=== PATIENT | female | born 1955 | race Caucasian/White ===

== ENCOUNTER 2018-01-16 18:36 | Inpatient (IN) | payer BC ==
[~2018-01-16] VITALS: Ht 165.1 cm; Wt 121.3 kg
[2018-01-16] MEDS ORDERED: ONDANSETRON INJ 2 MG/ML 2 ML VIAL IV STA (18:53)
[2018-01-16] MEDS ORDERED: SODIUM CHLORIDE 0.9% 1000ML 1,000 ML IV STA (18:53)
[2018-01-16] MEDS ORDERED: MoRPHine SULFATE 4 MG/ML 1 ML CARP\\VIAL IV PRN (19:00)
--- NOTE | 2018-01-16 19:00 | EMERGENCY ROOM VISIT NOTE ---
History Report prepared by [place]: Marcy Adams Under the Supervision of: Pat SaundersO. First contact with patient: 18:45 Chief Complaint: ABDOMINAL PAIN Stated Complaint: STOMACH PAIN AND STOMACH HARD History of Present Illness The patient is a 62 year old female who presents to the Emergency Room with complaints of persistent supraumbilical pain consistent with a previously identified hernia that worsened about an hour prior to arrival. She reports that she had been having some abdominal discomfort for several weeks, which was recently identified as a hernia. The patient states that today, she began experiencing severe pain that worsens when she stands up. She denies any vomiting, diarrhea, fevers, or chills. Source of History: patient Onset: about an hour prior to arrival Position: abdomen Quality: other (pain) Timing: other (persistent) Modifying Factors (Worsening): other (standing up) Associated Symptoms: No fevers, No chills, No vomiting, No diarrhea Review of Systems See HPI for pertinent positives & negatives. A total of 10 systems reviewed and were otherwise negative. Past Medical & Surgical Medical Problems: (1) Diverticulitis (2) Hernia Family History Patient reports no known family medical history. Social History Smoking Status: Never Smoker Smokeless Tobacco Use: No Alcohol Use: none Drug Use: none Occupation Status: employed Current/Historical Medications Scheduled Amlodipine (Norvasc), 5 MG PO DAILY Fluticasone Prop/Salmeterol (Advair Diskus 500/50 60 Dose), 1 PUFF INH BID Montelukast Sodium (Singulair), 10 MG PO QPM Omeprazole (Prilosec), 20 MG PO DAILY Scheduled PRN Albuterol Hfa (Ventolin Hfa), 2 PUFF INH Q4 PRN for SOB/Wheezing Allergies Coded Allergies: Amoxicillin (Verified Allergy, Severe, HIVES, 01/16/18) Doxycycline (Verified Allergy, Severe, hives, 01/16/18) Uncoded Allergies: UNKNOWN ANTIBIOTIC (Allergy, Severe, HIVES, 01/16/18) PT STATES IT IS EITHER BACTRIM OR AUGMENTUM. Physical Exam Vital Signs Date Time Temp Pulse Resp B/P (MAP) Pulse Ox O2 Delivery O2 Flow Rate FiO2 01/16/18 21:50 93 18 132/88 98 Room Air 01/16/18 20:08 84 18 132/90 99 Room Air 01/16/18 19:10 83 01/16/18 18:42 37.1 86 20 165/94 97 Room Air Physical Exam GENERAL: Patient is awake, alert, and in no acute distress. Patient is somewhat anxious and uncomfortable appearing EYES: The conjunctivae are clear. The pupils are round and reactive. EARS, NOSE, MOUTH AND THROAT: The nose is without any evidence of any deformity. Mucous membranes are moist tongue is midline NECK: The neck is nontender and supple. RESPIRATORY: Normal respiratory effort is noted there is no evidence of wheezing rhonchi or rales CARDIOVASCULAR: Regular rate and rhythm noted there no murmurs rubs or gallops normal S1 normal S2 GASTROINTESTINAL: Abdomen was mildly distended and soft. Supraumbilical incisional hernia noted in supraumbilical region with reproducible tenderness. Bowel sounds are present in all quadrants. Abdomen is nontender MUSCULOSKELETAL/EXTREMITIES: There is no evidence of gross deformity full range of motion is noted in the hips and shoulders SKIN: There is no obvious evidence of any rash. There are no petechiae, pallor or cyanosis noted. NEUROLOGIC: Patient is awake alert and oriented x3 Medical Decision & Procedures ER Provider Diagnostic Interpretation: Radiology results as stated below per my review and radiologist interpretation: CHEST ONE VIEW PORTABLE HISTORY: Generalized abdominal pain. COMPARISON: None. FINDINGS: The lungs are clear. The cardiac silhouette is mildly enlarged. No pleural effusions. No pneumothorax. IMPRESSION: Mild cardiomegaly. Otherwise, no acute process within the chest. Electronically signed by: Davy Narayanan M.D. 01/16/2018 7:38 PM Dictated Date/Time: 01/16/2018 7:37 PM ABDOMEN AND PELVIS CT WITHOUT CONTRAST CT DOSE: 973.81 mGycm HISTORY: Midabdominal pain. hernia TECHNIQUE: Multiaxial CT images of the abdomen and pelvis were performed without contrast. A dose lowering technique was utilized adhering to the principles of ALARA. COMPARISON STUDY: None. FINDINGS: Bibasilar linear densities likely represent subsegmental atelectasis. No pneumoperitoneum. No pneumatosis. Sclerosis of the sacroiliac joint suggestive of degenerative change. Moderate to large hiatus hernia. The unenhanced liver, spleen, adrenal glands are unremarkable. A 14 mm fat-containing lesion within the pancreatic head. This is consistent with a lipoma. The right kidney is unremarkable. Left extrarenal pelvis. No hydronephrosis. The bladder, uterus, and ovaries are unremarkable. No pelvic free fluid. Rectosigmoid anastomosis. Suboptimal evaluation for bowel pathology due to the lack of intravenous and oral contrast. However, there is no definite bowel wall thickening identified. The visualized appendix appears unremarkable. Small umbilical/ventral hernia containing a a few short segments of small bowel. The small bowel loops proximal to the hernia site are mildly distended and fluid-filled measuring up to 3.5 cm. The distal small bowel loops are decompressed. Therefore, this is consistent with a small bowel obstruction. Minimal fat stranding adjacent to the use of bowel entering the hernia site. There is a small gallstone. No gallbladder wall thickening. IMPRESSION: 1. Above findings consistent with a developing small bowel obstruction secondary to the ventral/umbilical hernia. Minimal fat stranding adjacent to the loops of bowel entering the hernia site which may represent incarceration. 2. Moderate to large hiatus hernia. 3. Cholelithiasis. Electronically signed by: Davy Narayanan M.D. 01/16/2018 8:06 PM Dictated Date/Time: 01/16/2018 7:55 PM Laboratory Results 01/16/18 19:10 Red Blood Count 4.45, Mean Corpuscular Volume 76.6, Mean Corpuscular Hemoglobin 24.0, Mean Corpuscular Hemoglobin Concent 31.4, Mean Platelet Volume 9.0, Neutrophils (%) (Auto) 70.1, Lymphocytes (%) (Auto) 17.6, Monocytes (%) (Auto) 10.6, Eosinophils (%) (Auto) 1.3, Basophils (%) (Auto) 0.2, Neutrophils # (Auto ) 6.63, Lymphocytes # (Auto) 1.66, Monocytes # (Auto) 1.00, Eosinophils # (Auto ) 0.12, Basophils # (Auto) 0.02 01/16/18 19:10 Test 01/16/18 19:10 01/16/18 19:17 01/16/18 19:24 01/16/18 19:25 White Blood Count 9.45 K/uL (4.8-10.8) Red Blood Count 4.45 M/uL (4.2-5.4) Hemoglobin 10.7 g/dL (12.0-16.0) Hematocrit 34.1 % (37-47) Mean Corpuscular Volume 76.6 fL (80-100) Mean Corpuscular Hemoglobin 24.0 pg (25-34) Mean Corpuscular Hemoglobin Concent 31.4 g/dl (32-36) Platelet Count 355 K/uL (130-400) Mean Platelet Volume 9.0 fL (7.4-10.4) Neutrophils (%) (Auto) 70.1 % Lymphocytes (%) (Auto) 17.6 % Monocytes (%) (Auto) 10.6 % Eosinophils (%) (Auto) 1.3 % Basophils (%) (Auto) 0.2 % Neutrophils # (Auto) 6.63 K/uL (1.4-6.5) Lymphocytes # (Auto) 1.66 K/uL (1.2-3.4) Monocytes # (Auto) 1.00 K/uL (0.11-0.59) Eosinophils # (Auto) 0.12 K/uL (0-0.5) Basophils # (Auto) 0.02 K/uL (0-0.2) RDW Standard Deviation 44.5 fL (36.4-46.3) RDW Coefficient of Variation 15.9 % (11.5-14.5) Immature Granulocyte % (Auto) 0.2 % Immature Granulocyte # (Auto) 0.02 K/uL (0.00-0.02) Est Creatinine Clear Calc Drug Dose 50.0 ml/min Estimated GFR () 41.1 Estimated GFR (Non- 35.5 BUN/Creatinine Ratio 13.1 (10-20) Calcium Level 8.6 mg/dl (8.5-10.1) Total Bilirubin 0.2 mg/dl (0.2-1) Direct Bilirubin < 0.1 mg/dl (0-0.2) Aspartate Amino Transf (AST/SGOT) 13 U/L (15-37) Alanine Aminotransferase (ALT/SGPT) 15 U/L (12-78) Alkaline Phosphatase 149 U/L (45-117) Troponin I < 0.015 ng/ml (0-0.045) Total Protein 8.0 gm/dl (6.4-8.2) Albumin 3.6 gm/dl (3.4-5.0) Lipase 290 U/L (73-393) Bedside Lactic Acid Venous 0.84 mmol/L (0.90-1.70) Bedside Hemoglobin 11.2 g/dl (12.0-16.0) Bedside Hematocrit 33 % (37-47) Bedside Sodium 142 mEq/L (135-144) Bedside Potassium 3.8 mEq/L (3.3-5.0) Bedside Chloride 103 mEq/L (101-112) Bedside Total CO2 25 mEq/l (24-31) Anion Gap 18.0 mmol/L (16-25) Bedside Blood Urea Nitrogen 21 mg/dl (7-18) Bedside Creatinine 1.5 mg/dl (0.6-1.3) Bedside Glucose (other) 112 mg/dl (70-99) Bedside Ionized Calcium (Macey) 1.11 mmol/l (1.12-1.32) Urine Color YELLOW Urine Appearance CLEAR (CLEAR) Urine pH 7.0 (4.5-7.5) Urine Specific [place] 1.013 (1.000-1.030) Urine Protein NEG (NEG) Urine Glucose (UA) NEG (NEG) Urine Ketones NEG (NEG) Urine Occult Blood NEG (NEG) Urine Nitrite NEG (NEG) Urine Bilirubin NEG (NEG) Urine Urobilinogen NEG (NEG) Urine Leukocyte Esterase TRACE (NEG) Urine WBC (Auto) 1-5 /hpf (0-5) Urine RBC (Auto) 0-4 /hpf (0-4) Urine Hyaline Casts (Auto) 0 /lpf (0-5) Urine Epithelial Cells (Auto) 10-20 /lpf (0-5) Urine Bacteria (Auto) NEG (NEG) Laboratory results per my review. Medications Administered Medications (Trade) Dose Ordered Sig/Mikey Route Start Time Stop Time Status Last Admin Dose Admin Sodium Chloride 1,000 ml @ 999 mls/hr Q1H1M STAT IV 01/16/18 18:53 01/16/18 19:53 DC 01/16/18 19:22 999 MLS/HR Sodium Chloride 1,000 ml @ 100 mls/hr Q10H IV 01/16/18 22:21 02/15/18 22:20 01/16/18 23:15 100 MLS/HR ECG Per My Interpretation Indication: abdominal pain Rate (beats per minute): 84 Rhythm: normal sinus Findings: no ectopy, other (No acute ST changes) Comparison ECG Date: no prior available ED Course 184: The patient was evaluated in room B11. A complete history and physical examination were performed. 185: Ordered Zofran Inj 4mg IV and Sodium Chloride 1000 ml @ 999 mls/hr IV. 1899: Ordered Morphine Sulfate 4mg IV. 2037: I discussed the patient's case with Dr. Byrd- general surgery. The patient will be evaluated for further management. Medical Decision Prior records/ancillary studies reviewed. Triage Nursing notes reviewed. The patient's history was concerning for abdominal pain. Differential diagnosis: Etiologies such as appendicitis, diverticulitis, PUD, biliary pathology, UTI, pancreatitis, obstruction, mesenteric ischemia, aortic pathology, infections, inflammatory bowel disease, renal colic, as well as others were entertained. The patient is a 62-year-old female who presented to the emergency department for an evaluation of abdominal discomfort. The patient has a history of a ventral hernia. She states that this area became very indurated and tender to palpation earlier today. The patient's physical exam did not reveal definite incarcerated hernia but there was a small sliding area in the supra umbilical region. I discussed patient's laboratory and radiographic studies with her. She was found to have signs of an incarcerated hernia on CAT scan. I discussed this case with the on-call general surgeon. The patient was evaluated by the general surgeon in the emergency department it was felt to be a candidate for operative management of this hernia. The patient was agreeable this plan. Medication Reconcilliation Current Medication List: was personally reviewed by me Blood Pressure Screening Patient's blood pressure: Normal blood pressure Blood pressure disposition: Did not require urgent referral Consults Time Called: 2037 Consulting Physician: Dr. Byrd, general surgery Returned Call: 2037 I discussed the patient's case with Dr. Byrd- general surgery. The patient will be evaluated for further management. Impression Primary Impression: Incarcerated ventral hernia Additional Impression: Bowel obstruction Scribe Attestation The scribe's documentation has been prepared under my direction and personally reviewed by me in its entirety. I confirm that the note above accurately reflects all work, treatment, procedures, and medical decision making performed by me. Departure Information Dispostion Being Evaluated By Surgeon Referrals No Doctor, Assigned (PCP) Forms Call Back Authorization, HOME CARE DOCUMENTATION FORM, IMPORTANT VISIT INFORMATION Patient Instructions My [facility] Problem Qualifiers Additional Impression: Bowel obstruction Intestinal obstruction type: unspecified Intestinal obstruction extent: unspecified extent Qualified Codes: K56.609 - Unspecified intestinal obstruction, unspecified as to partial versus complete obstruction
[2018-01-16 19:29] LABS: BASO % 0.2 %; BASO ABS # 0.02 K/uL (0-0.2); EOS % 1.3 %; EOS ABS # 0.12 K/uL (0-0.5); HEMATOCRIT 34.1 % (37-47); HEMOGLOBIN 10.7 g/dL (12.0-16.0); IG# 0.02 K/uL (0.00-0.02); LYMPH % 17.6 %; LYMPH ABS # 1.66 K/uL (1.2-3.4); MEAN CELL VOLUME 76.6 fL (80-100); MEAN CORPUSCULAR HGB CONC 31.4 g/dl (32-36); MONO % 10.6 %; NEUT % 70.1 %; NEUT ABS # 6.63 K/uL (1.4-6.5); PLATELET COUNT 355 K/uL (130-400); RED CELL DISTRIBUTION WIDTH CV 15.9 % (11.5-14.5); RED CELL DISTRIBUTION WIDTH SD 44.5 fL (36.4-46.3); WHITE BLOOD COUNT 9.45 K/uL (4.8-10.8)
[2018-01-16 19:37] LABS: ISTAT CREATININE 1.5 mg/dl (0.6-1.3); ISTAT IONIZED CALCIUM 1.11 mmol/l (1.12-1.32); ISTAT POTASSIUM 3.8 mEq/L (3.3-5.0)
--- NOTE | 2018-01-16 19:40 | DIAGNOSTIC IMAGING REPORT ---
CHEST ONE VIEW PORTABLE HISTORY: Generalized abdominal pain. COMPARISON: None. FINDINGS: The lungs are clear. The cardiac silhouette is mildly enlarged. No pleural effusions. No pneumothorax. IMPRESSION: Mild cardiomegaly. Otherwise, no acute process within the chest. Electronically signed by: Davy Narayanan M.D. 01/16/2018 7:38 PM Dictated Date/Time: 01/16/2018 7:37 PM
[2018-01-16 19:46] LABS: ALBUMIN 3.6 gm/dl (3.4-5.0); ALT/SGPT 15 U/L (12-78); AST/SGOT 13 U/L (15-37); BLOOD UREA NITROGEN 21 mg/dl (7-18); CALCIUM 8.6 mg/dl (8.5-10.1); CARBON DIOXIDE 28 mmol/L (21-32); CREATININE 1.57 mg/dl (0.60-1.20); GLUCOSE 106 mg/dl (70-99); LIPASE 290 U/L (73-393); POTASSIUM 3.7 mmol/L (3.5-5.1); SODIUM 139 mmol/L (136-145)
[2018-01-16 19:51] LABS: ALKALINE PHOSPHATASE 149 U/L (45-117)
--- NOTE | 2018-01-16 20:07 | DIAGNOSTIC IMAGING REPORT ---
ABDOMEN AND PELVIS CT WITHOUT CONTRAST CT DOSE: 973.81 mGycm HISTORY: Midabdominal pain. hernia TECHNIQUE: Multiaxial CT images of the abdomen and pelvis were performed without contrast. A dose lowering technique was utilized adhering to the principles of ALARA. COMPARISON STUDY: None. FINDINGS: Bibasilar linear densities likely represent subsegmental atelectasis. No pneumoperitoneum. No pneumatosis. Sclerosis of the sacroiliac joint suggestive of degenerative change. Moderate to large hiatus hernia. The unenhanced liver, spleen, adrenal glands are unremarkable. A 14 mm fat-containing lesion within the pancreatic head. This is consistent with a lipoma. The right kidney is unremarkable. Left extrarenal pelvis. No hydronephrosis. The bladder, uterus, and ovaries are unremarkable. No pelvic free fluid. Rectosigmoid anastomosis. Suboptimal evaluation for bowel pathology due to the lack of intravenous and oral contrast. However, there is no definite bowel wall thickening identified. The visualized appendix appears unremarkable. Small umbilical/ventral hernia containing a a few short segments of small bowel. The small bowel loops proximal to the hernia site are mildly distended and fluid-filled measuring up to 3.5 cm. The distal small bowel loops are decompressed. Therefore, this is consistent with a small bowel obstruction. Minimal fat stranding adjacent to the use of bowel entering the hernia site. There is a small gallstone. No gallbladder wall thickening. IMPRESSION: 1. Above findings consistent with a developing small bowel obstruction secondary to the ventral/umbilical hernia. Minimal fat stranding adjacent to the loops of bowel entering the hernia site which may represent incarceration. 2. Moderate to large hiatus hernia. 3. Cholelithiasis. Electronically signed by: Davy Narayanan M.D. 01/16/2018 8:06 PM Dictated Date/Time: 01/16/2018 7:55 PM
[2018-01-16] MEDS ORDERED: ADVIN50/60 INH (20:19)
[2018-01-16] MEDS ORDERED: AMLO-110 PO (20:19)
[2018-01-16] MEDS ORDERED: PRLSR20 PO (20:19)
[2018-01-16] MEDS ORDERED: MONT1TAB3 PO (20:19)
[2018-01-16] MEDS ORDERED: VNTHFA/IN INH (20:19)
--- NOTE | 2018-01-16 22:41 | History and Physical ---
History & Physical Date & Time of Service: Jan 16, 2018 at 22:28 Chief Complaint: Stomach Pain And Stomach Hard Primary Care Physician: No Doctor, Assigned History of Present Illness Source: patient, family This is a 62-year-old female who presented to the emergency room with increased abdominal pain in the periumbilical region. She underwent a sigmoid colon resection with formation of colostomy in January 2017 and then underwent colostomy reversal in April 2017. She had an episode of C. difficile colitis after that but has recovered completely. A few months after the colostomy reversal she noticed a bulge in the umbilical region. She also noticed that it was uncomfortable in that area. It was a dull ache. There is no sharp pain until a few days ago when she the area seemed to be harder and there was more pain. This eventually resolved back to just about baseline but she was having additional discomfort again earlier tonight. She had mild nausea that she attributed to being nervous. She has not had any vomiting. Her bowels have been moving with formed stool. She has no melena or hematochezia. She denies dysuria and hematuria. She has not had any fever. Past Medical/Surgical History Medical Problems: (1) Diverticulitis (2) Hernia (3) Hypertension (4) Asthma (5) Hiatal hernia (6) GERD PSH: (1) Tubal ligation (2) Lau procedure (3) Reversal of colostomy Family History Patient reports no known family medical history. Social History Smoking Status: Never Smoker Smokeless Tobacco Use: No Alcohol Use: None for the last 1 1/2 years Drug Use: none Occupational Status: employed Allergies Coded Allergies: Amoxicillin (Verified Allergy, Severe, HIVES, 01/16/18) Doxycycline (Verified Allergy, Severe, hives, 01/16/18) Uncoded Allergies: UNKNOWN ANTIBIOTIC (Allergy, Severe, HIVES, 01/16/18) PT STATES IT IS EITHER BACTRIM OR AUGMENTUM. Home Medications Scheduled Amlodipine (Norvasc), 5 MG PO DAILY Fluticasone Prop/Salmeterol (Advair Diskus 500/50 60 Dose), 1 PUFF INH BID Montelukast Sodium (Singulair), 10 MG PO QPM Omeprazole (Prilosec), 20 MG PO DAILY Scheduled PRN Albuterol Hfa (Ventolin Hfa), 2 PUFF INH Q4 PRN for SOB/Wheezing Review of Systems Constitutional: No fever, No chills Respiratory: No cough, No sputum Cardiovascular: No chest pain, No orthopnea Abdomen: + problem reported (as per HPI) Genitourinary - Female: No dysuria, No urinary frequency Endocrine: No fatigue Integumentary: No rash Physical Exam Vital Signs Date Time Temp Pulse Resp B/P (MAP) Pulse Ox O2 Delivery O2 Flow Rate FiO2 01/16/18 21:50 93 18 132/88 98 Room Air 01/16/18 20:08 84 18 132/90 99 Room Air 01/16/18 19:10 83 01/16/18 18:42 37.1 86 20 165/94 97 Room Air General Appearance: + obese Head: normocephalic Neck: supple, no adenopathy Respiratory/Chest: chest non-tender, lungs clear Cardiovascular: regular rate, rhythm Abdomen/GI: normal bowel sounds, soft, + pertinent finding (ventral hernia near umbilicus that was easily completely reduced , ) Back: normal inspection Skin: normal color Diagnostics Laboratory Results Results Past 24 Hours Test 01/16/18 19:10 01/16/18 19:17 01/16/18 19:24 01/16/18 19:25 Range/Units White Blood Count 9.45 4.8-10.8 K/uL Red Blood Count 4.45 4.2-5.4 M/uL Hemoglobin 10.7 12.0-16.0 g/dL Hematocrit 34.1 37-47 % Mean Corpuscular Volume 76.6 80-100 fL Mean Corpuscular Hemoglobin 24.0 25-34 pg Mean Corpuscular Hemoglobin Concent 31.4 32-36 g/dl Platelet Count 355 130-400 K/uL Mean Platelet Volume 9.0 7.4-10.4 fL Neutrophils (%) (Auto) 70.1 % Lymphocytes (%) (Auto) 17.6 % Monocytes (%) (Auto) 10.6 % Eosinophils (%) (Auto) 1.3 % Basophils (%) (Auto) 0.2 % Neutrophils # (Auto) 6.63 1.4-6.5 K/uL Lymphocytes # (Auto) 1.66 1.2-3.4 K/uL Monocytes # (Auto) 1.00 0.11-0.59 K/uL Eosinophils # (Auto) 0.12 0-0.5 K/uL Basophils # (Auto) 0.02 0-0.2 K/uL RDW Standard Deviation 44.5 36.4-46.3 fL RDW Coefficient of Variation 15.9 11.5-14.5 % Immature Granulocyte % (Auto) 0.2 % Immature Granulocyte # (Auto) 0.02 0.00-0.02 K/uL Sodium Level 139 136-145 mmol/L Potassium Level 3.7 3.5-5.1 mmol/L Chloride Level 106 98-107 mmol/L Carbon Dioxide Level 28 21-32 mmol/L Anion Gap 5.0 18.0 16-25 mmol/L Blood Urea Nitrogen 21 7-18 mg/dl Creatinine 1.57 0.60-1.20 mg/dl Est Creatinine Clear Calc Drug Dose 50.0 ml/min Estimated GFR () 41.1 Estimated GFR (Non- 35.5 BUN/Creatinine Ratio 13.1 10-20 Random Glucose 106 70-99 mg/dl Calcium Level 8.6 8.5-10.1 mg/dl Total Bilirubin 0.2 0.2-1 mg/dl Direct Bilirubin < 0.1 0-0.2 mg/dl Aspartate Amino Transf (AST/SGOT) 13 15-37 U/L Alanine Aminotransferase (ALT/SGPT) 15 12-78 U/L Alkaline Phosphatase 149 45-117 U/L Troponin I < 0.015 0-0.045 ng/ml Total Protein 8.0 6.4-8.2 gm/dl Albumin 3.6 3.4-5.0 gm/dl Lipase 290 73-393 U/L Bedside Lactic Acid Venous 0.84 0.90-1.70 mmol/L Bedside Hemoglobin 11.2 12.0-16.0 g/dl Bedside Hematocrit 33 37-47 % Bedside Sodium 142 135-144 mEq/L Bedside Potassium 3.8 3.3-5.0 mEq/L Bedside Chloride 103 101-112 mEq/L Bedside Total CO2 25 24-31 mEq/l Bedside Blood Urea Nitrogen 21 7-18 mg/dl Bedside Creatinine 1.5 0.6-1.3 mg/dl Bedside Glucose (other) 112 70-99 mg/dl Bedside Ionized Calcium (Macey) 1.11 1.12-1.32 mmol/l Urine Color YELLOW Urine Appearance CLEAR CLEAR Urine pH 7.0 4.5-7.5 Urine Specific [place] 1.013 1.000-1.030 Urine Protein NEG NEG Urine Glucose (UA) NEG NEG Urine Ketones NEG NEG Urine Occult Blood NEG NEG Urine Nitrite NEG NEG Urine Bilirubin NEG NEG Urine Urobilinogen NEG NEG Urine Leukocyte Esterase TRACE NEG Urine WBC (Auto) 1-5 0-5 /hpf Urine RBC (Auto) 0-4 0-4 /hpf Urine Hyaline Casts (Auto) 0 0-5 /lpf Urine Epithelial Cells (Auto) 10-20 0-5 /lpf Urine Bacteria (Auto) NEG NEG Diagnostic Radiology ABDOMEN AND PELVIS CT WITHOUT CONTRAST CT DOSE: 973.81 mGycm HISTORY: Midabdominal pain. hernia TECHNIQUE: Multiaxial CT images of the abdomen and pelvis were performed without contrast. A dose lowering technique was utilized adhering to the principles of ALARA. COMPARISON STUDY: None. FINDINGS: Bibasilar linear densities likely represent subsegmental atelectasis. No pneumoperitoneum. No pneumatosis. Sclerosis of the sacroiliac joint suggestive of degenerative change. Moderate to large hiatus hernia. The unenhanced liver, spleen, adrenal glands are unremarkable. A 14 mm fat-containing lesion within the pancreatic head. This is consistent with a lipoma. The right kidney is unremarkable. Left extrarenal pelvis. No hydronephrosis. The bladder, uterus, and ovaries are unremarkable. No pelvic free fluid. Rectosigmoid anastomosis. Suboptimal evaluation for bowel pathology due to the lack of intravenous and oral contrast. However, there is no definite bowel wall thickening identified. The visualized appendix appears unremarkable. Small umbilical/ventral hernia containing a a few short segments of small bowel. The small bowel loops proximal to the hernia site are mildly distended and fluid-filled measuring up to 3.5 cm. The distal small bowel loops are decompressed. Therefore, this is consistent with a small bowel obstruction. Minimal fat stranding adjacent to the use of bowel entering the hernia site. There is a small gallstone. No gallbladder wall thickening. IMPRESSION: 1. Above findings consistent with a developing small bowel obstruction secondary to the ventral/umbilical hernia. Minimal fat stranding adjacent to the loops of bowel entering the hernia site which may represent incarceration. 2. Moderate to large hiatus hernia. 3. Cholelithiasis. Impression Assessment and Plan This patient may have had incarceration of her ventral hernia. I was able to reduce it completely. She will need to have this repaired. I offered to repair tomorrow versus sending her home repairing it as an outpatient. She has chosen to have it repaired tomorrow. I explained to her the procedure and the possible complications and answered her questions. She has signed a consent form. We will admit her to the [facility]. She will be kept n.p.o. with IV hydration. Resuscitation Status VTE Prophylaxis Will order VTE Prophylaxis: Yes Reason for no VTE drug order: Contraindicated
[2018-01-16 23:00] VITALS: BP 163/75; PULSE 83; TEMP 36.7; O2SAT 97; Ht 165.1 cm; Wt 121.3 kg
[2018-01-16] MEDS: SODIUM CHLORIDE 0.9% 1000ML 1,000 ML IV SCH (23:15)
[2018-01-16] MEDS: ONDANSETRON INJ 2 MG/ML 2 ML VIAL IV PRN (23:25)
[2018-01-17] VITALS (8 sets, daily range): BP systolic 121–146; BP diastolic 76–87; PULSE 61–82; TEMP 36.3–36.8; O2SAT 95–98
[2018-01-17] MEDS ORDERED: CLINDAMYCIN IV 900 MG in DEXTROSE 5% 100ML 100 ML IV ONE (06:00)
[2018-01-17 07:57] LABS: BASO % 0.3 %; BASO ABS # 0.02 K/uL (0-0.2); EOS % 1.3 %; EOS ABS # 0.08 K/uL (0-0.5); HEMOGLOBIN 9.8 g/dL (12.0-16.0); IG# 0.01 K/uL (0.00-0.02); LYMPH % 22.3 %; MEAN CELL VOLUME 76.4 fL (80-100); MEAN CORPUSCULAR HEMOGLOBIN 23.4 pg (25-34); MEAN CORPUSCULAR HGB CONC 30.6 g/dl (32-36); MONO % 10.3 %; MONO ABS # 0.65 K/uL (0.11-0.59); NEUT % 65.6 %; NEUT ABS # 4.13 K/uL (1.4-6.5); PLATELET COUNT 290 K/uL (130-400); RED CELL DISTRIBUTION WIDTH CV 16.2 % (11.5-14.5); RED CELL DISTRIBUTION WIDTH SD 44.7 fL (36.4-46.3); WHITE BLOOD COUNT 6.29 K/uL (4.8-10.8)
[2018-01-17] MEDS: SODIUM CHLORIDE 0.9% 1000ML 1,000 ML IV SCH ×2 (08:52→23:14)
[2018-01-17] MEDS ORDERED: ACETAMINOPHEN 325 MG TAB PO STA (08:59)
--- NOTE | 2018-01-17 09:52 | Surgery Progress Note ---
Surgery Progress Note Date of Service Jan 17, 2018. Subjective + feeling well, + complaints (+headache), + pain controlled, No chest pain, No SOB, No nausea, No vomiting Objective Vital Signs: Date Time Temp Pulse Resp B/P (MAP) Pulse Ox O2 Delivery O2 Flow Rate FiO2 01/17/18 08:16 36.3 66 13 129/85 (100) 97 Room Air 01/17/18 07:45 Room Air 01/16/18 23:00 36.7 83 18 163/75 97 Room Air 01/16/18 23:00 Room Air 01/16/18 22:41 87 18 143/100 98 01/16/18 21:50 93 18 132/88 98 Room Air 01/16/18 20:08 84 18 132/90 99 Room Air 01/16/18 19:10 83 01/16/18 18:42 37.1 86 20 165/94 97 Room Air General Appearance: WD/WN, no apparent distress, + obese Head: normocephalic, atraumatic Neck: trachea midline Respiratory/Chest: lungs clear, normal breath sounds, no respiratory distress, no accessory muscle use Cardiovascular: regular rate, rhythm, no murmur Abdomen: non tender, non distended, soft, no organomegaly, no pulsatile mass, + hernia (ventral hernia, reduced at this time) Laboratory Results: Results Past 24 Hours Test 01/16/18 19:10 01/16/18 19:17 01/16/18 19:24 01/16/18 19:25 Range/Units White Blood Count 9.45 4.8-10.8 K/uL Red Blood Count 4.45 4.2-5.4 M/uL Hemoglobin 10.7 12.0-16.0 g/dL Hematocrit 34.1 37-47 % Mean Corpuscular Volume 76.6 80-100 fL Mean Corpuscular Hemoglobin 24.0 25-34 pg Mean Corpuscular Hemoglobin Concent 31.4 32-36 g/dl Platelet Count 355 130-400 K/uL Mean Platelet Volume 9.0 7.4-10.4 fL Neutrophils (%) (Auto) 70.1 % Lymphocytes (%) (Auto) 17.6 % Monocytes (%) (Auto) 10.6 % Eosinophils (%) (Auto) 1.3 % Basophils (%) (Auto) 0.2 % Neutrophils # (Auto) 6.63 1.4-6.5 K/uL Lymphocytes # (Auto) 1.66 1.2-3.4 K/uL Monocytes # (Auto) 1.00 0.11-0.59 K/uL Eosinophils # (Auto) 0.12 0-0.5 K/uL Basophils # (Auto) 0.02 0-0.2 K/uL RDW Standard Deviation 44.5 36.4-46.3 fL RDW Coefficient of Variation 15.9 11.5-14.5 % Immature Granulocyte % (Auto) 0.2 % Immature Granulocyte # (Auto) 0.02 0.00-0.02 K/uL Sodium Level 139 136-145 mmol/L Potassium Level 3.7 3.5-5.1 mmol/L Chloride Level 106 98-107 mmol/L Carbon Dioxide Level 28 21-32 mmol/L Anion Gap 5.0 18.0 16-25 mmol/L Blood Urea Nitrogen 21 7-18 mg/dl Creatinine 1.57 0.60-1.20 mg/dl Est Creatinine Clear Calc Drug Dose 50.0 ml/min Estimated GFR () 41.1 Estimated GFR (Non- 35.5 BUN/Creatinine Ratio 13.1 10-20 Random Glucose 106 70-99 mg/dl Calcium Level 8.6 8.5-10.1 mg/dl Total Bilirubin 0.2 0.2-1 mg/dl Direct Bilirubin < 0.1 0-0.2 mg/dl Aspartate Amino Transf (AST/SGOT) 13 15-37 U/L Alanine Aminotransferase (ALT/SGPT) 15 12-78 U/L Alkaline Phosphatase 149 45-117 U/L Troponin I < 0.015 0-0.045 ng/ml Total Protein 8.0 6.4-8.2 gm/dl Albumin 3.6 3.4-5.0 gm/dl Lipase 290 73-393 U/L Bedside Lactic Acid Venous 0.84 0.90-1.70 mmol/L Bedside Hemoglobin 11.2 12.0-16.0 g/dl Bedside Hematocrit 33 37-47 % Bedside Sodium 142 135-144 mEq/L Bedside Potassium 3.8 3.3-5.0 mEq/L Bedside Chloride 103 101-112 mEq/L Bedside Total CO2 25 24-31 mEq/l Bedside Blood Urea Nitrogen 21 7-18 mg/dl Bedside Creatinine 1.5 0.6-1.3 mg/dl Bedside Glucose (other) 112 70-99 mg/dl Bedside Ionized Calcium ([place]) 1.11 1.12-1.32 mmol/l Urine Color YELLOW Urine Appearance CLEAR CLEAR Urine pH 7.0 4.5-7.5 Urine Specific [place] 1.013 1.000-1.030 Urine Protein NEG NEG Urine Glucose (UA) NEG NEG Urine Ketones NEG NEG Urine Occult Blood NEG NEG Urine Nitrite NEG NEG Urine Bilirubin NEG NEG Urine Urobilinogen NEG NEG Urine Leukocyte Esterase TRACE NEG Urine WBC (Auto) 1-5 0-5 /hpf Urine RBC (Auto) 0-4 0-4 /hpf Urine Hyaline Casts (Auto) 0 0-5 /lpf Urine Epithelial Cells (Auto) 10-20 0-5 /lpf Urine Bacteria (Auto) NEG NEG Test 01/17/18 07:44 Range/Units White Blood Count 6.29 4.8-10.8 K/uL Red Blood Count 4.19 4.2-5.4 M/uL Hemoglobin 9.8 12.0-16.0 g/dL Hematocrit 32.0 37-47 % Mean Corpuscular Volume 76.4 80-100 fL Mean Corpuscular Hemoglobin 23.4 25-34 pg Mean Corpuscular Hemoglobin Concent 30.6 32-36 g/dl Platelet Count 290 130-400 K/uL Mean Platelet Volume 9.0 7.4-10.4 fL Neutrophils (%) (Auto) 65.6 % Lymphocytes (%) (Auto) 22.3 % Monocytes (%) (Auto) 10.3 % Eosinophils (%) (Auto) 1.3 % Basophils (%) (Auto) 0.3 % Neutrophils # (Auto) 4.13 1.4-6.5 K/uL Lymphocytes # (Auto) 1.40 1.2-3.4 K/uL Monocytes # (Auto) 0.65 0.11-0.59 K/uL Eosinophils # (Auto) 0.08 0-0.5 K/uL Basophils # (Auto) 0.02 0-0.2 K/uL RDW Standard Deviation 44.7 36.4-46.3 fL RDW Coefficient of Variation 16.2 11.5-14.5 % Immature Granulocyte % (Auto) 0.2 % Immature Granulocyte # (Auto) 0.01 0.00-0.02 K/uL Assessment & Plan Incarcerated ventral/umbilical hernia, s/p complete reduction in the emergency room. Scheduled for hernia repair today with Dr. Byrd. Vitals stable. Afebrile. No leukocytosis. Pain resolved. Plan: PO Tylenol one time dose with small sip of water for Headache Continue IV Fluids and IV Zofran as needed OR sometime early afternoon Consent has already been obtained by Dr. Byrd
[2018-01-17] MEDS ORDERED: ONDANSETRON INJ 2 MG/ML 2 ML VIAL IV PRN ×3 (10:15→16:00)
[2018-01-17] MEDS ORDERED: HYDROmorphone INJ 1 MG/ML SYR IV PRN ×3 (10:15→16:00)
[2018-01-17] MEDS ORDERED: EpHEDrine SULFATE INJ 50 MG/ML AMP IV PRN ×3 (10:15→16:00)
[2018-01-17] MEDS ORDERED: LABETALOL HCL IV 5 MG/ML 20ML IV PRN ×2 (10:15→14:00)
[2018-01-17] MEDS ORDERED: FENTANYL CITRATE INJ 50 MCG/1 ML 2 ML VIAL IV PRN ×2 (10:15→14:00)
[2018-01-17] MEDS ORDERED: ATROPINE SULFATE 0.1 MG/ML 5ML SYR IV PRN ×3 (10:15→16:00)
[2018-01-17] MEDS ORDERED: MEPERIDINE HCL 25 MG/ML CARP IV PRN ×2 (10:15→14:00)
[2018-01-17] MEDS ORDERED: BUPIVACAINE 0.5 % 5 MG/1 ML MPF 30ML VIAL ONE (13:22)
[2018-01-17] MEDS ORDERED: FENTANYL CITRATE INJ 50 MCG/1 ML 2 ML VIAL ONE (14:46)
[2018-01-17] MEDS ORDERED: MIDAZOLAM HCL 1 MG/ML 2ML VIAL ONE (14:46)
[2018-01-17] MEDS ORDERED: PROPOFOL IV EMULSION 10 MG/ML 20 ML VIAL IV ONE (14:46)
--- NOTE | 2018-01-17 14:46 | History & Physical Bridge Note ---
H&P Re-Evaluation Bridge Note: I have examined the patient, reviewed the History & Physical and in the interval since the performance of the History & Physical I have noted the following changes of clinical significance: No changes noted
[2018-01-17] MEDS ORDERED: NEOSTIGMINE METHYLSULFATE 5 MG/5 ML SYR ONE (15:35)
[2018-01-17] MEDS ORDERED: ONDANSETRON INJ 2 MG/ML 2 ML VIAL ONE (15:35)
[2018-01-17] MEDS ORDERED: ROCURONIUM BROMIDE 10 MG/ML 5 ML VIAL IV ONE ×2 (15:35→16:46)
[2018-01-17] MEDS ORDERED: LIDOCAINE HCL 2% 2 ML VIAL (20MG/ML) ONE (15:35)
[2018-01-17] MEDS ORDERED: GLYCOPYRROLATE INJ 0.2 MG/ML VIAL ONE (15:35)
[2018-01-17] MEDS ORDERED: DEXAMETHASONE SOD INJ 4 MG/ML VIAL ONE (15:35)
[2018-01-17] MEDS ORDERED: HYDROmorphone INJ 2 MG/ML SYR/VIAL ONE (15:36)
[2018-01-17] MEDS ORDERED: SUCCINYLCHOLINE CHLORIDE 20 MG/ML 10 ML VIAL IV ONE (16:50)
--- NOTE | 2018-01-17 17:32 | [facility] Post Operative Brief Note ---
Immediate Operative Summary Operative Date Jan 17, 2018. Pre-Operative Diagnosis ventral hernia Post-Operative Diagnosis same Procedure(s) Performed Repair of ventral hernia Surgeon Dr. Valentín Byrd Small Animal Caretaker Surgeon(s) Alda Og PA-C Estimated Blood Loss 20 cc Findings Consistent with Post-Op Diagnosis Specimens None Drains None Anesthesia Type General Complication(s) none Disposition Disposition: Recovery Room / PACU
[2018-01-17] MEDS ORDERED: MoRPHine SULFATE 4 MG/ML 1 ML CARP\\VIAL IV PRN (18:00)
[2018-01-17] MEDS: FENTANYL CITRATE INJ 50 MCG/1 ML 2 ML VIAL IV PRN ×8 (18:24→19:14)
[2018-01-17] MEDS ORDERED: HYDROmorphone INJ 0.5 MG/0.5 ML SYR ONE (18:41)
[2018-01-17] MEDS ORDERED: NURSING VERBAL MED ORDER ONE ×3 (18:50→23:00)
[2018-01-17] MEDS ORDERED: PROMETHAZINE HCL INJ 6.25 MG in SODIUM CHLORIDE 0.9% 50ML 50 ML IV ONE (19:15)
--- NOTE | 2018-01-17 19:32 | Anesthesiology Progress Note ---
Anesthesia Post Op Note Date & Time Jan 17, 2018 at 19:32 Vital Signs Pain Intensity: 5 Vital Signs Past 12 Hours Date Time Temp Pulse Resp B/P (MAP) Pulse Ox O2 Delivery O2 Flow Rate FiO2 01/17/18 19:20 36.4 95 Nasal Cannula 2 01/17/18 19:17 74 14 01/17/18 19:17 80 14 96 01/17/18 19:16 137/83 01/17/18 19:12 76 14 01/17/18 19:12 78 14 99 01/17/18 19:11 127/73 01/17/18 19:07 69 17 01/17/18 19:07 72 17 94 01/17/18 19:06 144/93 01/17/18 19:02 77 14 94 01/17/18 19:02 78 14 01/17/18 19:01 153/82 01/17/18 18:59 74 12 01/17/18 18:59 70 12 95 01/17/18 18:56 153/83 01/17/18 18:54 85 14 01/17/18 18:54 86 14 97 01/17/18 18:51 164/89 01/17/18 18:49 91 15 01/17/18 18:49 92 15 96 01/17/18 18:46 162/83 01/17/18 18:44 66 16 01/17/18 18:44 67 16 97 01/17/18 18:41 144/79 01/17/18 18:39 65 14 01/17/18 18:39 61 14 96 01/17/18 18:36 145/85 01/17/18 18:34 67 16 94 01/17/18 18:34 63 16 01/17/18 18:33 75 16 01/17/18 18:33 75 16 96 01/17/18 18:31 158/90 01/17/18 18:28 83 16 01/17/18 18:28 82 16 97 01/17/18 18:26 147/82 01/17/18 18:23 74 16 92 01/17/18 18:23 74 16 01/17/18 18:21 158/97 01/17/18 18:18 83 16 01/17/18 18:18 82 16 94 01/17/18 18:16 136/82 01/17/18 18:13 82 17 94 4/24/18 18:13 81 17 01/17/18 18:11 151/79 01/17/18 18:08 80 14 98 01/17/18 18:08 80 14 01/17/18 18:06 154/84 01/17/18 18:03 88 19 01/17/18 18:03 88 19 99 01/17/18 18:02 87 13 01/17/18 18:02 90 13 97 01/17/18 18:01 142/88 01/17/18 17:57 89 16 01/17/18 17:57 89 16 96 01/17/18 17:56 155/84 01/17/18 17:52 87 20 98 01/17/18 17:52 88 20 01/17/18 17:51 152/96 01/17/18 17:48 140/80 01/17/18 17:47 88 17 96 01/17/18 17:47 87 17 01/17/18 17:47 36.5 83 16 140/80 97 Oxymask 10 01/17/18 12:34 36.6 82 16 146/87 (106) 97 Room Air 01/17/18 08:16 36.3 66 13 129/85 (100) 97 Room Air 01/17/18 07:45 Room Air Notes Mental Status: alert / awake / arousable, participated in evaluation Pt Amnestic to Procedure: Yes Nausea / Vomiting: adequately controlled Pain: adequately controlled Airway Patency, RR, SpO2: stable & adequate BP & HR: stable & adequate Hydration State: stable & adequate Anesthetic Complications: no major complications apparent
--- NOTE | 2018-01-17 20:27 | OPERATIVE REPORT ---
DATE OF OPERATION: 01/17/2018 PREOPERATIVE DIAGNOSIS: Previously incarcerated ventral hernia. POSTOPERATIVE DIAGNOSIS: Ventral hernia with 2 defects. PROCEDURE: Repair of ventral hernia. SURGEON: Valentín Byrd MD SOLE TACKER: Alda Og PA-C FINDINGS: The patient had 2 fascial defects. When combined, it measured approximately 7 cm. There was bowel on its antimesenteric border extending into the lower defect that was able to be reduced easily and taken down. There were multiple adhesions of the small bowel to the anterior abdominal wall on the inner portion of the peritoneum underneath the fascial defects. These adhesions had to be taken down in order to complete the repair. No enterotomies or serosal disruptions were created. There were no other defects identified. TECHNIQUE: The patient was given a general anesthetic, and the area was prepped and draped in the usual sterile fashion. Vertical midline incision was made through the previous scar, carried down through the subcutaneous tissue. This had to be increased superiorly during the procedure. It was carried down through the subcutaneous tissue. The first hernia sac was identified. It was about twice the size as the hernia defect itself. It was adherent to the anterior surface of the fascia as it had ballooned. Dissection was carried out to free it off the anterior surface until I could identify the edges of the fascial opening. I then opened the sac and placed my finger within it. That is when the bowel within the peritoneal attachments was identified. Some of those were taken down using blunt and sharp dissection where appropriate. That allowed me then to identify the bowel knuckle that was extending out through the more inferior fascial defect. I was able to establish a plane between the peritoneum and the fascial bridge, and it was opened. That exposed that hernia sac and that was dissected away from the anterior wall of the fascia as it had mushroomed over that area as well. Once I had the entire fascial edge opened, I worked toward initially the left side and worked along the undersurface of the fascia and established a plane between the posterior sheath and the rectus muscle. A plane was free, and I was able to then work that dissection superiorly toward the apex of the defect. I then worked similar dissection on the right side. That plane was a little more difficult to identify and establish, but then I worked superiorly and peeled that all down for a distance of at least 5 cm proximal to the apex of the fascia. I then was able to work inferiorly. That planes were difficult to establish, but I was able to get between the peritoneum and the fascia overlying it. The hernia sac then was going to be sewn down to the peritoneal opening to cover the bowel; however, there was an additional loop of bowel that was identified. This was away from the inner surface of the hernia sac and placed back into its anatomic position. I then closed the peritoneal opening and used some of the posterior sheath for that closure as well. A piece of round mesh 15 cm in diameter was placed in the retrofascial preperitoneal position, and some of the mesh was cut away inferiorly as the AP diameter under there measured only about 12 cm. The mesh was lying nicely. It was secured to the undersurface of the fascia using 0 PDS horizontal mattress sutures. The fascial defect was then closed with a running #1 PDS. The subcutaneous tissue was irrigated. The irrigation was removed. Hemostasis was obtained using electrocautery at all times. One perforating vein during the dissection had to be clamped and ligated with a 2-0 Vicryl tie. The subcutaneous tissue was approximated using 2-0 Vicryl, and the skin was closed with janina. The estimated blood loss was 20 mL. The skin was anesthetized with 0.5% Marcaine. The skin was cleansed, dried, and a dressing placed. I attest to the content of the Intraoperative Record and any orders documented therein. Any exception s are noted below.
[2018-01-17] MEDS: OXYCODONE/ACETAMINOPHEN 5-325 TAB PO PRN (21:27)
[2018-01-18] MEDS: OXYCODONE/ACETAMINOPHEN 5-325 TAB PO PRN ×4 (01:37→23:11)
[2018-01-18] MEDS: ONDANSETRON INJ 2 MG/ML 2 ML VIAL IV PRN (02:55)
[2018-01-18 03:54] VITALS: BP 144/92; PULSE 97; TEMP 36.8; O2SAT 94
[2018-01-18 08:03] LABS: HEMOGLOBIN 9.8 g/dL (12.0-16.0); IG# 0.03 K/uL (0.00-0.02); LYMPH % 6.7 %; MEAN CELL VOLUME 77.5 fL (80-100); MEAN CORPUSCULAR HEMOGLOBIN 23.7 pg (25-34); MEAN CORPUSCULAR HGB CONC 30.6 g/dl (32-36); MEAN PLATELET VOLUME 8.9 fL (7.4-10.4); MONO % 7.6 %; MONO ABS # 0.91 K/uL (0.11-0.59); NEUT % 85.4 %; NEUT ABS # 10.23 K/uL (1.4-6.5); PLATELET COUNT 323 K/uL (130-400); RED CELL DISTRIBUTION WIDTH CV 16.3 % (11.5-14.5); RED CELL DISTRIBUTION WIDTH SD 46.2 fL (36.4-46.3); WHITE BLOOD COUNT 11.97 K/uL (4.8-10.8)
[2018-01-18 08:10] VITALS: BP 144/85; PULSE 86; TEMP 36.7; O2SAT 96
[2018-01-18 08:14] VITALS: BP 144/85; PULSE 86; TEMP 36.7; O2SAT 96
[2018-01-18] MEDS: SODIUM CHLORIDE 0.9% 1000ML 1,000 ML IV SCH ×2 (09:16→19:33)
--- NOTE | 2018-01-18 12:02 | Surgery Progress Note ---
Surgery Progress Note Date of Service Jan 18, 2018. Subjective + pain controlled, + nausea (Had nausea last night postoperatively but that has resolved), + diet (Tolerated liquids), No bowel movement, No flatus, No vomiting Objective Vital Signs: Date Time Temp Pulse Resp B/P (MAP) Pulse Ox O2 Delivery O2 Flow Rate FiO2 01/18/18 08:14 36.7 86 18 144/85 (104) 96 Room Air 01/18/18 08:10 36.7 86 18 144/85 (104) 96 Room Air 01/18/18 08:00 Room Air 01/18/18 03:54 36.8 97 18 144/92 (109) 94 Room Air 01/17/18 23:22 95 Nasal Cannula 1.0 01/17/18 23:00 36.8 67 16 125/81 (96) 98 Nasal Cannula 2.0 01/17/18 22:07 36.8 61 16 121/76 (91) 95 Nasal Cannula 2.0 01/17/18 21:12 36.7 62 18 126/83 (97) 96 Nasal Cannula 2.0 01/17/18 20:30 36.5 64 16 128/84 (99) 95 Nasal Cannula 2.0 01/17/18 20:00 Nasal Cannula 2.0 Free Flow/[place] 01/17/18 20:00 36.3 64 20 144/83 (103) 95 Nasal Cannula 2.0 01/17/18 20:00 Nasal Cannula 2.0 01/17/18 19:36 137/83 01/17/18 19:33 58 16 96 01/17/18 19:33 57 16 01/17/18 19:31 138/84 01/17/18 19:28 68 13 95 01/17/18 19:28 67 13 01/17/18 19:26 142/89 01/17/18 19:23 64 20 01/17/18 19:23 63 20 96 01/17/18 19:21 146/92 01/17/18 19:20 36.4 95 Nasal Cannula 2 01/17/18 19:18 81 13 94 01/17/18 19:18 77 13 01/17/18 19:17 74 14 01/17/18 19:17 80 14 96 01/17/18 19:16 137/83 01/17/18 19:12 76 14 4/24/18 19:12 78 14 99 01/17/18 19:11 127/73 4/18 19:07 69 17 4/18 19:07 72 17 94 01/17/18 19:06 144/93 18 19:02 77 14 94 01/17/18 19:02 78 14 01/17/18 19:01 153/82 01/17/18 18:59 74 12 01/17/18 18:59 70 12 95 18 18:56 153/83 01/17/18 18:54 85 14 18 18:54 86 14 97 01/17/18 18:51 164/89 18 18:49 91 15 18 18:49 92 15 96 18 18:46 162/83 01/17/18 18:44 66 16 18 18:44 67 16 97 18 18:41 144/79 18 18:39 65 14 18 18:39 61 14 96 18 18:36 145/85 01/17/18 18:34 67 16 94 01/17/18 18:34 63 16 18 18:33 75 16 18 18:33 75 16 96 01/17/18 18:31 158/90 01/17/18 18:28 83 16 01/17/18 18:28 82 16 97 01/17/18 18:26 147/82 01/17/18 18:23 74 16 92 18 18:23 74 16 18 18:21 158/97 01/17/18 18:18 83 16 4/18 18:18 82 16 94 18 18:16 136/82 01/17/18 18:13 82 17 94 01/17/18 18:13 81 17 01/17/18 18:11 151/79 18 18:08 80 14 98 01/17/18 18:08 80 14 18 18:06 154/84 01/17/18 18:03 88 19 418 18:03 88 19 99 18 18:02 87 13 18 18:02 90 13 97 01/17/18 18:01 142/88 01/17/18 17:57 89 16 01/17/18 17:57 89 16 96 01/17/18 17:56 155/84 01/17/18 17:52 87 20 98 01/17/18 17:52 88 20 01/17/18 17:51 152/96 01/17/18 17:48 140/80 01/17/18 17:47 88 17 96 01/17/18 17:47 87 17 01/17/18 17:47 36.5 83 16 140/80 97 Oxymask 10 01/17/18 12:34 36.6 82 16 146/87 (106) 97 Room Air Abdomen: normal bowel sounds, non distended, soft, + tenderness (Incisional only) Laboratory Results: Results Past 24 Hours Test 01/18/18 07:36 Range/Units White Blood Count 11.97 4.8-10.8 K/uL Red Blood Count 4.13 4.2-5.4 M/uL Hemoglobin 9.8 12.0-16.0 g/dL Hematocrit 32.0 37-47 % Mean Corpuscular Volume 77.5 80-100 fL Mean Corpuscular Hemoglobin 23.7 25-34 pg Mean Corpuscular Hemoglobin Concent 30.6 32-36 g/dl Platelet Count 323 130-400 K/uL Mean Platelet Volume 8.9 7.4-10.4 fL Neutrophils (%) (Auto) 85.4 % Lymphocytes (%) (Auto) 6.7 % Monocytes (%) (Auto) 7.6 % Eosinophils (%) (Auto) 0.0 % Basophils (%) (Auto) 0.0 % Neutrophils # (Auto) 10.23 1.4-6.5 K/uL Lymphocytes # (Auto) 0.80 1.2-3.4 K/uL Monocytes # (Auto) 0.91 0.11-0.59 K/uL Eosinophils # (Auto) 0.00 0-0.5 K/uL Basophils # (Auto) 0.00 0-0.2 K/uL RDW Standard Deviation 46.2 36.4-46.3 fL RDW Coefficient of Variation 16.3 11.5-14.5 % Immature Granulocyte % (Auto) 0.3 % Immature Granulocyte # (Auto) 0.03 0.00-0.02 K/uL Assessment & Plan Status post repair of previously incarcerated ventral hernia Doing well. Incision healing well. We will advance diet. Encouraged ambulation
[2018-01-18 14:58] VITALS: BP 130/80; PULSE 87; TEMP 36.9; O2SAT 95
[2018-01-18] MEDS ORDERED: OXYCODONE/ACETAMINOPHEN 5-325 TAB PO PRN (18:00)
[2018-01-18] MEDS ORDERED: ALBUTEROL HFA 8 GM INHALER INH PRN (18:00)
[2018-01-18] MEDS ORDERED: ACETAMINOPHEN 325 MG TAB PO PRN (18:00)
[2018-01-18] MEDS ORDERED: MONTELUKAST SOD 10 MG TAB PO SCH (21:00)
[2018-01-18] MEDS: FLUTICASONE/SALMETEROL (ADVAIR) 500/50 INH 14 PUFF INH SCH (21:03)
[2018-01-18 23:04] VITALS: BP 132/80; PULSE 91; TEMP 37; O2SAT 97
[2018-01-19 07:46] VITALS: BP 148/87; PULSE 88; TEMP 36.9; O2SAT 93
[2018-01-19] MEDS: OXYCODONE/ACETAMINOPHEN 5-325 TAB PO PRN (07:54)
[2018-01-19] MEDS: SODIUM CHLORIDE 0.9% 1000ML 1,000 ML IV SCH (07:56)
[2018-01-19 08:00] VITALS: O2SAT 93
[2018-01-19] MEDS: FLUTICASONE/SALMETEROL (ADVAIR) 500/50 INH 14 PUFF INH SCH (08:39)
[2018-01-19] MEDS ORDERED: PANTOprazole SOD 40 MG TAB PO SCH (09:00)
[2018-01-19] MEDS ORDERED: AMLODIPINE BESYLATE 5 MG TAB PO SCH (09:00)
[2018-01-19] MEDS ORDERED: OXYC-57 PO (09:08)
--- NOTE | 2018-01-19 09:11 | Discharge Instructions ---
Discharge Instructions Date of Service Jan 19, 2018. Admission Reason for Admission: Incarcerated Ventral Hernia Discharge Discharge Diagnosis / Problem: same Discharge Goals Goal(s): Decrease discomfort, Improve function Activity Recommendations Activity Limitations: per Instructions/Follow-up section No heavy lifting over 10 pounds for 6 weeks No strenuous activity until cleared by surgeon No submerging incision underwater for 2 weeks (no bathing, swimming, or hot tubs ) No driving while taking narcotic pain medication or until you are pain free . Instructions / Follow-Up Instructions / Follow-Up You may shower today. Gently clean incision with soap and water Michelle will be removed in office 10-14 days after your surgery date. Walking and light activity is encouraged to prevent blood clots from forming You will be given narcotic pain medication (Percocet) as needed for moderate to severe pain. Take as directed. This medication may make you drowsy and can cause constipation. To combat constipation, you may take OTC stool softener such as Colace, drink plenty of water daily, gentle laxative or prune juice if needed. You may take extra strength Tylenol as needed for mild pain when you are NO longer taking Percocet as Percocet has Tylenol in it. Follow-up in surgical office in 10-14 days, please call office at [phone] to make an appointment Wear abdominal binder daily and at bedtime for support. Current Hospital Diet Patient's current hospital diet: Regular Diet Discharge Diet Recommended Diet: Regular Diet Procedures Procedures Performed: Repair of ventral hernia Pending Studies Studies pending at discharge: no Medical Emergencies . Who to Call and When: Medical Emergencies: If at any time you feel your situation is an emergency, please call 911 immediately. . Non-Emergent Contact Non-Emergency issues call your: Primary Care Provider, Surgeon Call Non-Emergent contact if: you have a fever, temperature is above 101, your pain is not controlled, your pain is worsening, your pain is unusual for you, wound has increased drainage, wound has increased redness, wound has increased pain . "Provider Documentation" section prepared by Alda Og. . [place] Drug Monitoring Program Search Results: patient reviewed within database, no issues identified
--- NOTE | 2018-01-19 09:13 | Surgery Progress Note ---
Surgery Progress Note Date of Service Jan 19, 2018. Subjective Post OP Day: 2 + feeling well, + ambulating, + flatus, + pain controlled, + nausea, + vomiting , No complaints, No bowel movement, No diet (regular diet) Objective Vital Signs: Date Time Temp Pulse Resp B/P (MAP) Pulse Ox O2 Delivery O2 Flow Rate FiO2 01/19/18 07:46 36.9 88 16 148/87 (107) 93 Room Air 01/18/18 23:09 Room Air 01/18/18 23:04 37.0 91 132/80 (97) 97 Room Air 01/18/18 16:01 Room Air 01/18/18 14:58 36.9 87 18 130/80 (97) 95 Room Air General Appearance: WD/WN, no apparent distress, + obese Head: normocephalic, atraumatic Neck: trachea midline Respiratory/Chest: no respiratory distress, no accessory muscle use Abdomen: non tender, non distended, soft, no organomegaly, no pulsatile mass Incision(s): clean, dry, intact, no erythema, no drainage Assessment & Plan POD # 2 s/p repair of incarcerated ventral hernia with mesh -vitals stable - pain controlled - tolerating regular diet Plan: d/c home today discharge instructions reviewed f/u surgical office 10-[address] Byrd has seen and examined pt, agrees with above
[2018-01-19 09:22] VITALS: BP 148/87; PULSE 88; TEMP 36.9; O2SAT 93
== END 2018-01-19 10:30 | disposition home or self-care (01) | DRG 354 ==
LOC: C.EDB 18:39 → C.MSW 22:27 → ENRESERV 22:34
PROVIDERS: ADMIT Surgery; ATTEND Surgery
PROC: 0WUF0JZ Supplement Abdominal Wall with Synthetic Substitute, Open Approach (ICD-10-PCS; principal; 2018-01-17 07:30)
DX: K43.0 Incisional hernia with obstruction, without gangrene (principal); Z68.41 Body mass index [BMI] 40.0-44.9, adult; I10 Essential (primary) hypertension; J45.909 Unspecified asthma, uncomplicated; K21.9 Gastro-esophageal reflux disease without esophagitis; E66.3 Overweight; Z79.899 Other long term (current) drug therapy; Z87.19 Personal history of other diseases of the digestive system; Z88.1 Allergy status to other antibiotic agents; Z88.0 Allergy status to penicillin